=== PATIENT | male | born 1990 | race Caucasian/White ===

== ENCOUNTER 2022-12-15 13:40 | Emergency (ER) | payer MEDICAID, SELFPAY ==
[2022-12-15 13:41] VITALS: BP 154/103; PULSE 86; RESP 16; TEMP 36.6; O2SAT 100
--- NOTE | 2022-12-15 14:02 | CT_ITS ---
INDICATION: Status post fall EXAMINATION: CT FACIAL BONES - CT Maxillofacial W/O Contrast Injection TECHNIQUE: Helically acquired images were obtained of the facial bones. A radiation dose optimization technique was used for this scan. IV Contrast dosage and agent: None. RADIATION DOSAGE (If Supplied By Facility): CTDIvol = ( 44.99 ) mGy, DLP = ( 863.60 ) mGycm COMPARISON: No prior examinations are available for comparison. FINDINGS: SOFT TISSUES: Left periorbital and facial soft tissue swelling and edema. No discrete fluid collections. VISUALIZED PARANASAL SINUSES: Mucosal thickening of the maxillary sinuses and of the ethmoid sinuses bilaterally. No air-fluid level is seen. VISUALIZED MASTOID AIR CELLS: Clear. FACIAL BONES, MANDIBLE AND TMJs: No displaced facial bone fracture. No lytic or blastic abnormality. VISUALIZED DENTITION: No definite periodontal osseous erosion. ORBITAL CONTENTS: Both globes, extraocular muscles and retrobulbar fat appear unremarkable. CT/Sinus/Facial Bone IMPRESSION: 1. Left facial soft tissue swelling. 2. No evidence of acute facial bone fracture. 3. Sinus disease. Electronically Signed: Rhys Green MD at 15:10 EDT ,
--- NOTE | 2022-12-15 14:02 | CT_ITS ---
INDICATION: Status post fall EXAMINATION: CT BRAIN - CT Head or Brain W/O Contrast Injection TECHNIQUE: Multiple axial images were obtained of the head without intravenous contrast. A radiation dose optimization technique was used for this scan. IV Contrast dosage and agent: None. RADIATION DOSAGE (If Supplied By Facility): CTDIvol = ( 44.99 ) mGy, DLP = ( 863.60 ) mGycm COMPARISON: No prior examinations are available for comparison. FINDINGS: BRAIN PARENCHYMA: No intra- or extra-axial hemorrhage. No evidence of acute infarct. No intracranial mass or mass effect. There is preservation of the barry/white matter interface. Posterior fossa structures are unremarkable. CSF SPACES: Appropriate for age. No hydrocephalus. Basal cisterns are patent. CALVARIUM, SKULL BASE, PARANASAL SINUSES AND MASTOID AIR CELLS: Mild mucosal thickening of the ethmoid and maxillary sinuses. ORBITS: Both globes, extraocular muscles, optic nerves and retrobulbar fat appear unremarkable. ASPECTS Score for Acute Strokes: 10 CT/Brain/Head without Contrast IMPRESSION: No acute intracranial process. Mild sinus disease. Electronically Signed: Rhys Green MD at 15:05 EDT ,
--- NOTE | 2022-12-15 14:08 | EDS_ITS ---
<Statement entered by Lalito Marin MD - 12/15/22 15:32> I have personally performed a face to face assessment of the patient and have reviewed the ARSENIO Note. HPI <SILVINO Clemens - Last Filed: 12/15/22 15:20> History of Present Illness Chief Complaint: Head Injury Narrative Narrative: Patient is a 32-year-old male with history of anxiety, depression, OCD presents to the emergency department with a mechanical fall while drinking alcohol last night. Patient states he does not remember quite how the fall happened however he was intoxicated, he struck his left side of his face, he has a scalp laceration well is a superficial forehead laceration. He denies any specific LOC however he does state to have seeing stars. Patient denies any neck pain. Patient denies any other injuries from the fall. PFSH <SILVINO Clemens - Last Filed: 12/15/22 15:20> [facility] Medical History (Updated 12/15/22 @ 15:[address] Lalito Marin MD) Anxiety Allergy/AdvReac Type Severity Reaction Status Date / Time No Known Allergies Allergy Verified 12/15/22 13:43 Social History Smoking Status: Former smoker ROS <SILVINO Clemens - Last Filed: 12/15/22 15:20> ROS ED ROS Narrative Constitutional: Negative for fever, chills, weight loss, weakness Eyes: Negative for vision loss, vision change, double vision. Positive for swelling to the left eye ENT: Negative for any sore throat, ear pain, congestion. Cardiovascular: Negative for any chest pain, tightness, palpitations Respiratory: Negative for any cough, sputum production, hemoptysis, dyspnea, dyspnea on exertion, orthopnea Gastrointestinal: Negative for any abdominal pain, nausea, vomiting, diarrhea, constipation, blood in stool, blood in vomit : Negative for any urinary frequency, dysuria, retention, blood in urine Muscle skeletal: Negative for any muscle joint pain, stiffness, myalgias, arthralgias, neck pain, back pain Neurological: Negative for any headache, syncope, numbness or tingling, dizziness Skin: Negative for any rashes, lumps, itching, abrasions. Positive for laceration to the right forehead, scalp Psychiatric: Negative for any depression, anxiety, stress, suicidal ideation, homicidal ideation Hematologic: Negative for any easy bruising, excessive bruising, easy bleeding Allergies: Negative for any eczema, hives, rash EXAM <SILVINO Clemens - Last Filed: 12/15/22 15:20> Physical Exam Narrative Exam Narrative: Vital signs reviewed. Patient is acting appropriate. HEET: Head normocephalic atraumatic, TMs clear bilaterally. Posterior pharynx is clear, moist mucous membranes. Nares clear bilaterally. Pupils are equal round reactive to light. Patient does have blood in bilateral ears however this appears to be dried blood from the wounds on his scalp and face. This is easily removed. Negative for any hemotympanum. Patient does have pain around the left eye, negative for any pain during EOMs. Neck: Supple with no lymphadenopathy or tenderness. No signs of meningismus, negative jolt sign. Cardiac: Regular rate and rhythm no murmurs gallops or rubs, equal peripheral pulses bilaterally. Respiratory: Lungs clear to auscultation bilaterally. No chest tenderness. Abdomen: Soft, nontender, nondistended. No abdominal bruit or pulsatile masses. No hepatosplenomegaly Extremities: No peripheral edema, no signs of gross trauma or deformity. Active full range of motion of all extremities. Neuro: Cranial nerves II through XII intact, no focal neurological deficits. Skin: Clean dry and intact with no rash, purpura, petechiae, vesicles or pust ules. Backs/flank: No CVA tenderness, no midline spinal tenderness, no deformity. Psych: Normal mood and affect. No SI, HI or acute psychosis. Const Vital Signs: 12/15/22 13:41 12/15/22 14:15 Temperature 97.8 F Temperature Source Temporal Pulse Rate 86 Respiratory Rate 16 Respiratory Effort Normal Non-Labored Blood Pressure 154/103 H Blood Pressure Mean 120 Pulse Ox 100 Oxygen Delivery Method Room Air Positive well nourished and well developed General Appearance ED: well developed <Dr. Lalito Marin MD - Last Filed: 12/15/22 15:33> Physical Exam Const Vital Signs: 12/15/22 13:41 12/15/22 14:15 Temperature 97.8 F Temperature Source Temporal Pulse Rate 86 Respiratory Rate 16 Respiratory Effort Normal Non-Labored Blood Pressure 154/103 H Blood Pressure Mean 120 Pulse Ox 100 Oxygen Delivery Method Room Air MDM <SILVINO Clemens - Last Filed: 12/15/22 15:20> [facility] Radiography Diagnostic Testing: Clinical Impression(s) from Imaging Studies Brain CT 12/15/22 14:02 IMPRESSION: No acute intracranial process. Mild sinus disease. Electronically Signed: Rhys Green MD at 15:05 EDT , Facial/Sinus 12/15/22 14:02 IMPRESSION: 1. Left facial soft tissue swelling. 2. No evidence of acute facial bone fracture. 3. Sinus disease. Electronically Signed: Rhys Green MD at 15:10 EDT , Treatment and Re-Evaluation :: Patient appears generally well, patient appears nontoxic, vital signs are stable. Patient presents to the emergency department after mechanical fall while drinking alcohol last evening. Based on the patient's injuries, I am unsure if he is being truthful however patient is not revealing any other information. Secondary to the patient being intoxicated yesterday, patient will receive a CT scan of the brain to rule out any skull fracture, intracranial hemorrhage. As well as CT scan of the brain to rule out any orbital bone fracture, nasal fracture. Patient tetanus vaccination is updated in the last 2 [address] scans of the brain and facial bones, these were grossly unremarkable. I was able to use lidocaine with epinephrine to close the skin flap on the patient's scalp. Please see procedure notes. Patient given wound care instructions. We will have the harinder, suture removed in 7 days. Patient stable for discharge <Dr. Lalito Marin MD - Last Filed: 12/15/22 15:33> [facility] Narrative Medical decision making narrative: I have personally performed a face to face assessment of the patient and have reviewed the ARSENIO Note. I performed a substantive portion of the visit including all aspects of the following. My avitia findings include: History is 32-year-old male no seen past medical history. Last night was consuming alcohol and reportedly fell several times. They thought it was okay but when he woke up this morning he had bruising below his left eye and a laceration to the anterior aspect of his scalp above his forehead. He did not lose conscious. He is not on blood thinners. But said he hit pretty hard and he saw stars. He denies any neck pain or other complaints. Exam is [32-year-old male no acute distress. Vital signs stable afebrile. H EENT exam pupils round reactive light extra motions are intact. Pupils about 2 to 3 mm bilaterally. He has bruising below his left eye. He is a flap laceration to the anterior aspect of the top of his scalp just past his forehead. There is dried blood. No foreign body seen or infection. Dentition intact. C-spine and back nontender. Full range of motion of his neck. Trachea midline. Lungs clear and equal symmetrical bilaterally. Heart regular rhythm no murmur. Chest wall nontender. Ribs nontender. Abdomen soft nontender. Pelvic girdle intact. Moves all 4 extremities. Nontender. No deformity. Normal range of motion.] Medical Decision Making [32-year-old head injury while drinking alcohol. CT of his head and facial bones are being obtained. Tetanus is already up-to-date. He will need suture or staple repair of the scalp laceration.] Other additions or changes: [None] History & Record Review Discussion w/independent historian: Patient and Family Radiography Diagnostic Testing: Clinical Impression(s) from Imaging Studies Brain CT 12/15/22 14:02 IMPRESSION: No acute intracranial process. Mild sinus disease. Electronically Signed: Rhys Green MD at 15:05 EDT Reading Location ID and State: [facility] / [place] Tel , Service support , Facial/Sinus 12/15/22 14:02 IMPRESSION: 1. Left facial soft tissue swelling. 2. No evidence of acute facial bone fracture. 3. Sinus disease. Electronically Signed: Rhys Green MD at 15:10 EDT , Procedures <SILVINO Clemens - Last Filed: 12/15/22 15:20> Lacerations Scalp laceration: Length: 1.18 in Depth: Skin Shape: Flap Prep: Sterile Conditions and Shure-Clens Laceration repair: Lidocaine with epi Irrigated (ml): 100 Number of Sutures/[place]: 5 Suture Information: Simple and 4-0 Comment: Patient wound irrigated, sterile gloves, sterile drapes used. I did place one 4-0 Ethilon suture to the hairline to put the flap down. And then used 4 harinder to keep the flap down. Patient tolerated well. Edges approximate nicely. Discharge Plan Triage Chief Complaint: Head Injury ED Midlevel Provider: Vivek Garcia ED Provider: Lalito Marin Dx/Rx/DC Orders Clinical Impression: Closed head injury, Laceration of scalp Instructions: ED Head Injury (Adult), ED Laceration: All Closures Primary Care Provider: SAYRA CHILDS DO Referrals: [facility] Doctor,Out of [Non-Staff] - Activity Restrictions/Additional Instructions: Motrin and Tylenol for pain. Clean your scalp laceration daily with soap and water. Dry carefully and thoroughly. Watch for any signs of infection such as redness, pus, swelling or fever if seen return. [place] out in 10 days. Return if vomiting or not acting himself. Disposition Disposition: Home, Self Care Discharge Date/Time: 12/15/22 15:29
[2022-12-15] MEDS: Lidocaine 1% /Epi 1:100 (20ml) 20 ML Vial INFILT (14:13)
== END 2022-12-15 15:29 | disposition home or self-care (01) ==
PROVIDERS: Emergency Provider Emergency Medicine; Visit Provider Emergency Medicine
DX: S01.01XA Laceration without foreign body of scalp, initial encounter (principal); Z87.891 Personal history of nicotine dependence; S09.8XXA Other specified injuries of head, initial encounter; W19.XXXA Unspecified fall, initial encounter
CPT/HCPCS: 12001; 70450; 70486; 99282